=== PATIENT | male | born 2000 | race African-American/Black ===

== ENCOUNTER 2022-03-12 21:30 | Emergency (ER) | payer BC, SELFPAY ==
[2022-03-12 21:43] VITALS: BP 132/99; PULSE 58; RESP 16; TEMP 36.6; O2SAT 98; BMI 24.5
--- NOTE | 2022-03-12 21:55 | ED.GENADULT ---
HPI - General Adult General Chief complaint: Unspecified Complaint, Adult Stated complaint: Fentanyl withdrawl Time Seen by Provider: 03/12/22 21:35 History of Present Illness HPI narrative: Patient is a 21-year-old gentleman who has history of methamphetamine and fentanyl abuse. He stopped using fentanyl yesterday and called his mom to bring him home after living on the streets for the last several years intermittently. Patient is going through withdrawal from fentanyl with the nausea vomiting and agitation. Patient is interested in outpatient treatment but is not interested in inpatient treatment. His mom would very much like to take him home with appropriate medications and outpatient follow-up. He describes no chest pain shortness of breath or PND. He has been vomiting but has had no blood in his vomitus. Related Data Home Medications Medication Instructions Recorded Confirmed No Known Home Medications 03/12/22 03/12/22 Allergies Allergy/AdvReac Type Severity Reaction Status Date / Time No Known Drug Allergies Allergy Verified 03/12/22 21:46 Review of Systems Status of ROS: Reports: 6 or more systems reviewed and unremarkable except as noted in History and below [facility] Medical History (Updated 03/12/22 @ 22:01 by Luis Espinosa MD) No significant past medical history Surgical History (Updated 03/12/22 @ 21:41 by Juve Govea RN) No significant past surgical history Social History Smoking Status: Current every day smoker What tobacco products do you use: cigarettes Do you use any of these nicotine containing products: None Second hand tobacco smoke exposure: Yes How often do you have a drink containing alcohol: never How often do you have six or more drinks on one occasion: Never AUDIT-C Alcohol total score: 0 Non-prescribed substance use: marijuana (any form) and opiods/painkillers Exam Narrative: Exam Narrative: EXAM GENERAL: Patient appears uncomfortable mildly agitated. EYES: No scleral icterus. LYMPH: No supraclavicular or cervical lymphadenopathy. SKIN: Visible skin seen during exam normal or with benign process only. EXT: No dependent lower extremity pedal edema. HEART: Regular rate and rhythm with no murmurs, rubs, or gallops. LUNGS: Clear to auscultation bilaterally with no crackles or wheezes. ABD: Soft, non tender, non distended. PSYCH: Patient appears to only grunt answers to questions his mom answers the bulk of his questions for him. Const: Vital Signs, click to edit/add: Vital Signs - 24 hr 03/12/22 21:43 Temperature 97.8 F Pulse Rate [Right Pulse Oximeter] 58 L Respiratory Rate 16 Blood Pressure [Le ft Upper Arm] 132/99 H Pulse Oximetry 98 Course Course Hospital Course: Patient given 1 L of normal saline 4 mg of IV Zofran. Vital Signs Vital signs: Initial Vital Signs Temperature 97.8 F 03/12/22 21:43 Temperature Source Temporal Artery Scan 03/12/22 21:43 Pulse Rate 58 L 03/12/22 21:43 Respiratory Rate 16 03/12/22 21:43 Blood Pressure 132/99 H 03/12/22 21:43 Blood Pressure Mean 110 03/12/22 21:43 Blood Pressure Position Supine 03/12/22 21:43 Pulse Oximetry 98 03/12/22 21:43 Oxygen Delivery Method 03/12/22 21:43 Vital Signs Temperature 97.8 F 03/12/22 21:43 Pulse Rate 58 L 03/12/22 21:43 Respiratory Rate 16 03/12/22 21:43 Blood Pressure 132/99 H 03/12/22 21:43 Pulse Oximetry 98 03/12/22 21:43 Temperature 97.8 F 03/12/22 21:43 Pulse Rate 58 L 03/12/22 21:43 Respiratory Rate 16 03/12/22 21:43 Blood Pressure 132/99 H 03/12/22 21:43 Pulse Oximetry 98 03/12/22 21:43 Medical Decision Making MDM Narrative Medical decision making narrative: Patient is in a difficult situation is he has been on street drugs for years. Mom is willing to care for him. I do think we can help him by providing hydration tonight as well as Zofran. Also treating as an outpatient with Ativan Zofran an outpatient follow-up with [facility] would be my 1st choice. Patient is understanding of this. Discharge Plan Discharge Clinical Impression: Acute drug withdrawal syndrome Patient Disposition: Home w/ Parent or Adult Condition: Stable Instructions: Polysubstance Abuse (ED) Additional Instructions: Ativan and Zofran as directed Outpatient treatment with consideration of Suboxone treatment Activity Level: Activity as Tolerated Discharge Diet: Regular Prescriptions: No Action No Known Home Medications 0RF Stand Alone Forms: [employer] Info Instructions
[2022-03-12] MEDS: ONDANSETRON 2 MG/ML inj 4 MG IVP (22:06)
[2022-03-12] MEDS: 0.9 % SODIUM CHLORIDE 1000 ml 1,000 ML IV (22:06)
--- NOTE | 2022-03-12 22:22 | ED.NURSE ---
Substance abuse treatment resources given to pt mother at bedside.
[2022-03-12 22:38] VITALS: PULSE 61; RESP 18; TEMP 36.6; O2SAT 99
== END 2022-03-12 23:02 | disposition home or self-care (01) ==
PROVIDERS: Emergency Provider Internal Medicine
DX: F11.13 Opioid abuse with withdrawal (principal)
CPT/HCPCS: 96374; 99283; 99284; J2405; J7030